=== PATIENT | male | born 1990 | race African-American/Black ===

== ENCOUNTER 2020-04-05 02:49 | Emergency (ER) | payer OTHER ==
[2020-04-05 03:31] VITALS: BP 111/66; PULSE 89; TEMP 99.1; BMI 29.7
[2020-04-05] MEDS ORDERED: ACETAMINOPHEN 500 MG TABLET (FP) PO ONE (03:33)
== END 2020-04-05 05:09 | disposition home or self-care (01) ==
LOC: JER 02:49
DX: R09.89 Other specified symptoms and signs involving the circulatory and respiratory systems (principal); R51.9 Headache, unspecified
CPT/HCPCS: 71046-TC-FY; 99284-25; C9803; U0003